=== PATIENT | male | born 1980 | race Caucasian/White ===

== ENCOUNTER 2023-03-09 08:57 | Emergency (ER) | payer MEDICAID, OTHER | END 2023-03-09 10:01 | disposition home or self-care (01) | LOC: JP.ED 08:57 | DX: L03.113 Cellulitis of right upper limb (principal); Z88.0 Allergy status to penicillin; Z86.16 Personal history of COVID-19 | CPT/HCPCS: 99282; 99283 ==

== ENCOUNTER 2023-10-08 21:16 | Emergency (ER) | payer MEDICAID ==
[2023-10-08 22:07] LABS: BASOPHILS ABSOLUTE AUTO 0.05 K/uL (0.00-0.10); BASOPHILS PERCENT AUTO 0.8 % (0.1-1.3); EOSINOPHILS ABSOLUTE AUTO 0.67 K/uL (0.00-0.40); EOSINOPHILS PERCENT AUTO 10.3 % (0.0-5.4); HEMATOCRIT 36.2 % (38.4-49.7); HEMOGLOBIN 12.4 g/dL (12.9-16.9); IMMATURE GRAN ABSOLUTE AUTO 0.09 K/uL (0.00-0.23); IMMATURE GRAN PERCENT AUTO 1.4 % (0.0-0.7); LYMPHOCYTES ABSOLUTE AUTO 2.53 K/uL (0.8-3.3); LYMPHOCYTES PERCENT AUTO 38.9 % (11.4-47.7); MEAN CORPUSCULAR HGB CONC 34.3 g/dL (31.6-35.5); MEAN CORPUSCULAR VOLUME 87.4 fL (81.4-99.0); MONOCYTES ABSOLUTE AUTO 0.88 K/uL (0.20-0.90); MONOCYTES PERCENT AUTO 13.5 % (3.3-12.6); NEUTROPHILS ABSOLUTE AUTO 2.28 K/uL (1.0-7.6); NEUTROPHILS PERCENT AUTO 35.1 % (40.0-78.1); PLATELET COUNT,PLT 242 K/uL (130-375); RED BLOOD CELL COUNT 4.14 M/uL (4.14-5.76); WHITE BLOOD CELL COUNT,WBC 6.5 K/uL (3.2-11.0)
[2023-10-08 22:27] LABS: INR 1.1; PROTHROMBIN TIME 10.9 sec (9.2-10.6); PTT,PARTIAL THROMBOPLSTIN TIME 26.1 sec (21.8-27.3)
[2023-10-08 22:34] LABS: A/G RATIO 0.9 (1.2-2.2); ALANINE AMINOTRANSFERASE,ALT 23 U/L (12-78); ALBUMIN 3.2 g/dL (3.4-5.0); ALKALINE PHOSPHATASE 115 U/L (46-116); ASPARTATE AMNIOTRANSFERASE,AST 18 U/L (15-37); BILIRUBIN TOTAL 0.2 mg/dL (0.2-1.0); BLOOD UREA NITROGEN,BUN 15 mg/dL (7-18); CALCIUM 8.4 mg/dL (8.5-10.1); CARBON DIOXIDE,CO2 29 mmol/L (21-32); CHLORIDE,CL 104 mmol/L (100-108); CREATININE 0.9 mg/dL (0.8-1.3); EST CRCL DRUG DOSING (CG) 103.44 mL/min; ESTIMATED GFR 109 mL/min (>60); GLUCOSE RANDOM 112 mg/dL (74-106); PROTEIN TOTAL,TP 6.6 g/dL (6.4-8.2); SODIUM,NA 138 mmol/L (140-148)
== END 2023-10-08 23:02 | disposition home or self-care (01) ==
LOC: JP.ED 21:16
DX: K59.03 Drug induced constipation (principal); R40.0 Somnolence; D64.9 Anemia, unspecified; Z88.0 Allergy status to penicillin; Z86.16 Personal history of COVID-19
CPT/HCPCS: 36415; 74022; 74022-26; 80053; 85025; 85610; 85730; 99283